=== PATIENT | male | born 1995 | race Caucasian/White ===

== ENCOUNTER 2016-09-04 23:20 | Emergency (ER) | payer BC ==
[~2016-09-04] VITALS: Ht 175.3 cm; Wt 141.3 kg
[2016-09-04 23:32] VITALS: BP 122/80; PULSE 74; RESP 16; TEMP 98.4; O2SAT 98
[2016-09-05] MEDS ORDERED: KETOROLAC TROMETHAMINE 30 MG/ML (IVP) VIAL IV PUSH ONE (01:45)
[2016-09-05] MEDS ORDERED: PROPARACAINE HCL 0.5% OPHT SOLN 15 ML BTL EACH EYE ONE (01:45)
[2016-09-05] MEDS ORDERED: FLUORESCEIN SOD 1 MG STRIP EACH EYE ONE (01:45)
[2016-09-05] MEDS ORDERED: SODIUM CHLOR 0.9% 1000 ML INJ 1,000 ML IV ONE (01:45)
[2016-09-05 02:11] LABS: AUTOMATED NEUTROPHIL # 5.1 TH/MM3 (1.8-7.7); BASOPHIL # 0.1 TH/MM3 (0-0.2); BASOPHIL % 0.6 % (0.0-2.0); EOSINOPHIL # 0.1 TH/MM3 (0-0.4); EOSINOPHIL % 1.3 % (0.0-4.0); HEMATOCRIT 40.1 % (39.0-51.0); HEMO FLAGS DIFF FINAL; LYMPH % 36.3 % (9.0-44.0); LYMPHOCYTE # 3.4 TH/MM3 (1.0-4.8); MEAN CELL VOLUME 78.4 FL (80.0-100.0); MEAN CORPUSCULAR HEMOGLOBIN 26.1 PG (27.0-34.0); MEAN CORPUSCULAR HGB CONC 33.3 % (32.0-36.0); MONO % 7.6 % (0.0-8.0); NEUT % 54.2 % (16.0-70.0); PLATELET COUNT 291 TH/MM3 (150-450); RED BLOOD COUNT 5.11 MIL/MM3 (4.50-5.90); RED CELL DISTRIBUTION WIDTH 13.7 % (11.6-17.2); WHITE BLOOD COUNT 9.4 TH/MM3 (4.0-11.0)
[2016-09-05 02:20] LABS: CHLORIDE 104 MEQ/L (98-107); POTASSIUM 3.7 MEQ/L (3.5-5.1); SODIUM (NA) 142 MEQ/L (136-145)
[2016-09-05 02:23] LABS: ANION GAP 8 MEQ/L (5-15); BICARBONATE 29.8 MEQ/L (21.0-32.0)
[2016-09-05 02:24] LABS: BLOOD UREA NITROGEN 17 MG/DL (7-18)
[2016-09-05 02:26] LABS: ALT (GPT) 34 U/L (9-52); AST (GOT) 24 U/L (15-39)
[2016-09-05 02:27] LABS: GLOMERULAR FILTRATION RATE 78 ML/MIN (>89)
[2016-09-05 02:28] LABS: TOTAL BILIRUBIN ADULT 0.9 MG/DL (0.2-1.0)
[2016-09-05 02:29] LABS: ALKALINE PHOSPHATASE 87 U/L (45-117); CREATINE KINASE 437 U/L (39-308)
[2016-09-05 02:45] VITALS: BP 136/64; PULSE 75; RESP 16; O2SAT 99
[2016-09-05 03:00] LABS: CKMB 2.8 NG/ML (0.5-3.6)
--- NOTE | 2016-09-05 03:13 | PD ---
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 He denies any blurred vision. He denies any nausea or vomiting. He tried taking ibuprofen at home without much relief of his pain. He says he was drinking water today. He denies fever or chills. His girlfriend is concerned because his arms are more hand than they were earlier, prior to being outside. PFSH Past Medical History Diminished Hearing: No Genitourinary: Yes (TESTICULAR TORSION 2009) Tetanus Vaccination: < 5 Years Influenza Vaccination: No Past Surgical History Genitourinary Surgery: Yes (TESTICULAR TORSION) Other Surgery: Yes (toe) Social History Alcohol Use: No Tobacco Use: No Substance Use: No Allergies-Medications (Allergen,Severity, Reaction): Coded Allergies: Cefzil (Verified Allergy, Unknown, UNKNOWN CHILD, 05/20/16) Reported Meds & Prescriptions Reported Meds & Active Scripts Active No Active Prescriptions or Reported Medications Review of Systems Except as stated in HPI: all other systems reviewed are Neg General / Constitutional: No: Fever, Chills Eyes: Positive: Pain, No: Diploplia, Blurred Vision HENT: Positive: Headaches Cardiovascular: No: Chest Pain or Discomfort Respiratory: No: Shortness of Breath Gastrointestinal: No: Nausea, Vomiting Musculoskeletal: Positive: Myalgias Skin: No Rash, No Change in Pigmentation Neurologic: No: Weakness, Dizziness Physical Exam Narrative GENERAL: Awake and alert, in no acute distress. SKIN: Focused skin assessment warm/dry. HEAD: Atraumatic. Normocephalic. EYES: Pupils equal and round. No scleral icterus. Extraocular movements intact. ENT: Mucous membranes pink and moist. NECK: Trachea midline. No JVD. CARDIOVASCULAR: Regular rate and rhythm. No murmur appreciated. RESPIRATORY: No accessory muscle use. Clear to auscultation. Breath sounds equal bilaterally. MUSCULOSKELETAL: No obvious deformities. No clubbing. No cyanosis. No edema. NEUROLOGICAL: Awake and alert. No obvious cranial nerve deficits. Motor grossly within normal limits. Normal speech. PSYCHIATRIC: Appropriate mood and affect; insight and judgment normal. Data Data Last Documented VS Vital Signs Date Time Temp Pulse Resp B/P Pulse Ox O2 Delivery O2 Flow Rate FiO2 09/05/16 01:37 Room Air 09/04/16 23:32 98.4 74 16 122/80 98 Orders Complete Blood Count With Diff (09/05/16 01:39) Comprehensive Metabolic Panel (09/05/16 01:39) Creatine Kinase (Cpk) (09/05/16 01:39) Sodium Chlor 0.9% 1000 Ml Inj (Ns 1000 M (09/05/16 01:45) Ketorolac Inj (Toradol Inj) (09/05/16 01:45) Fluorescein Strip (Emtgy-S-Ocxcaz A.T.) (09/05/16 01:45) Proparacaine 0.5% Opth Soln (Alcaine 0.5 (09/05/16 01:45) CKMB (09/05/16 02:00) CKMB% (09/05/16 02:00) Labs Laboratory Tests Test 09/05/16 02:00 White Blood Count 9.4 TH/MM3 Red Blood Count 5.11 MIL/MM3 Hemoglobin 13.3 GM/DL Hematocrit 40.1 % Mean Corpuscular Volume 78.4 FL Mean Corpuscular Hemoglobin 26.1 PG Mean Corpuscular Hemoglobin 33.3 % Concent Red Cell Distribution Width 13.7 % Platelet Count 291 TH/MM3 Mean Platelet Volume 8.1 FL Neutrophils (%) (Auto) 54.2 % Lymphocytes (%) (Auto) 36.3 % Monocytes (%) (Auto) 7.6 % Eosinophils (%) (Auto) 1.3 % Basophils (%) (Auto) 0.6 % Neutrophils # (Auto) 5.1 TH/MM3 Lymphocytes # (Auto) 3.4 TH/MM3 Monocytes # (Auto) 0.7 TH/MM3 Eosinophils # (Auto) 0.1 TH/MM3 Basophils # (Auto) 0.1 TH/MM3 CBC Comment DIFF FINAL Differential Comment Sodium Level 142 MEQ/L Potassium Level 3.7 MEQ/L Chloride Level 104 MEQ/L Carbon Dioxide Level 29.8 MEQ/L Anion Gap 8 MEQ/L Blood Urea Nitrogen 17 MG/DL Creatinine 1.20 MG/DL Estimat Glomerular Filtration 78 ML/MIN Rate Random Glucose 102 MG/DL Calcium Level 9.3 MG/DL Total Bilirubin 0.9 MG/DL Aspartate Amino Transf 24 U/L (AST/SGOT) Alanine Aminotransferase 34 U/L (ALT/SGPT) Alkaline Phosphatase 87 U/L Total Creatine Kinase 437 U/L Creatine Kinase MB 2.8 NG/ML Creatine Kinase MB % 0.6 % Total Protein 8.0 GM/DL Albumin 3.9 GM/DL [facility] Medical Decision Making Medical Screen Exam Complete: Yes Emergency Medical Condition: Yes Medical Record Reviewed: Yes Differential Diagnosis Rhabdomyolysis versus dehydration versus electrolyte abnormality Narrative Course Patient is a 20-year-old male comes in complaining of body aches, headache, eye pain after being in the sun today. Exam shows no acute abnormalities. Both eyes stained with fluorescein, show no signs of corneal abrasion. Labs sent show no acute abnormalities. Patient given IV fluids. Advised to drink plenty of fluids when he is outside in the sun. Advised to use sun protection. Advised follow-up with his doctor. Advised to return to the ED as needed for any worsening symptoms. Diagnosis Primary Impression: Fatigue Qualified Code: R53.83 - Fatigue, unspecified type Patient Instructions: Dehydration (ED), Fatigue (ED), General Instructions Additional Instructions: Increase your fluid intake. Wear sun protection. Follow up with a primary doctor. Return to the ED as needed for any worsening symptoms. Scripts No Active Prescriptions or Reported Meds Disposition: 01 DISCHARGE HOME Condition: Stable Caroline Haynes MD Sep 05, 2016 03:13
[2016-09-05 03:34] VITALS: BP 117/69
== END 2016-09-05 03:30 | disposition home or self-care (01) ==
LOC: PHED 23:20
DX: R53.83 Other fatigue (principal); R51 Headache
CPT/HCPCS: 80053; 82550; 82552; 85025; 96361; 96374; 99284; J1885; J7030